=== PATIENT | female | born 1935 | race African-American/Black ===

== ENCOUNTER 2022-02-23 13:40 | Inpatient (IN) | payer MEDICARE, BC ==
[~2022-02-23] VITALS: Ht 167.6 cm; Wt 53.8 kg
[2022-02-23 16:31] LABS: BASOPHILS % 0.7 % (0.0-2.0); EOSINOPHILS % 0.2 % (0.0-5.0); HEMATOCRIT. 41.2 % (36.0-48.0); HEMOGLOBIN. 13.7 g/dL (12.0-16.0); LYMPHOCYTES % 10.2 % (20.0-50.0); MEAN CORPUSCULAR HEMOGLOBIN 28.9 pg (28.0-32.0); MEAN CORPUSCULAR VOLUME 86.7 fL (81.0-99.0); MEAN PLATELET VOLUME 9.9 fl (7.4-10.4); MONOCYTES % 7.8 % (2.0-8.0); NEUTROPHILS % 81.1 % (40.0-76.0); PLATELET 195 x1000/uL (130-400); RED BLOOD CELL COUNT 4.75 mill/uL (4.2-5.4); RED CELL DISTRIBUTION WIDTH 14.3 % (11.6-14.6)
[2022-02-23 16:36] LABS: CHLORIDE 107 mEq/L (98-107)
[2022-02-23] MEDS ORDERED: ONDANSETRON HCL 4MG/2ML INJ IV STA (16:41)
[2022-02-23] MEDS ORDERED: MORPHINE SULFATE 4 MG/ML CPJ (NOT FOR IM USE) IV STA (16:41)
[2022-02-23] MEDS ORDERED: CEFTRIAXONE 1 G PREMIX 50 ML IV ONE (16:45)
[2022-02-23 18:25] LABS: CLARITY URINE CLOUDY (CLEAR); COLOR URINE YELLOW (YELLOW); KETONES URINE TRACE (NEGATIVE); LEUKOCYTE ESTERASE URINE 2+ (NEGATIVE); NITRITE URINE NEGATIVE (NEGATIVE); OCCULT BLOOD URINE NEGATIVE (NEGATIVE); PH URINE 6.5 (4.5-8.0); PROTEIN URINE 1+ (NEGATIVE); SPECIFIC GRAVITY URINE 1.019 (1.005-1.030)
[2022-02-23] MEDS ORDERED: LACTULOSE 20G/30ML UDC PO NR (23:15)
[2022-02-23] MEDS ORDERED: DOCUSATE SODIUM 100MG CAPSULE PO PRN (23:15)
[2022-02-23] MEDS ORDERED: ONDANSETRON HCL 4MG/2ML INJ IV PRN (23:15)
[2022-02-23] MEDS ORDERED: ACETAMINOPHEN 325MG TABLET PO PRN (23:15)
[2022-02-23] MEDS ORDERED: MAGNESIUM/ALUMINUM HYDROXIDE/SIMETHICONE 30ML UDC PO PRN (23:15)
[2022-02-23] MEDS ORDERED: DIPHENHYDRAMINE 50MG/ML VIAL IV PRN (23:15)
[2022-02-23] MEDS ORDERED: MORPHINE SULFATE 2 MG/ML CPJ (NOT FOR IM USE) IV PRN (23:15)
[2022-02-23] MEDS ORDERED: HYDRALAZINE 20MG/ML VIAL IV PRN (23:15)
[2022-02-23] MEDS ORDERED: CLONIDINE 0.1MG TABLET PO PRN (23:15)
[2022-02-23] MEDS ORDERED: GUAIFENESIN 200MG/10ML SUGAR FREE UDC PO PRN (23:15)
[2022-02-23] MEDS ORDERED: HYDROCODONE/ACETAMINOPHEN 5/325MG TABLET PO PRN (23:15)
[2022-02-23] MEDS ORDERED: IPRATROPIUM/ALBUTEROL 0.5-3(2.5)MG/3ML NEB HHN PRN (23:15)
[2022-02-23] MEDS ORDERED: LORAZEPAM 2MG/ML CPJ IV PRN (23:15)
[2022-02-23] MEDS: SODIUM CHLORIDE 0.45% 1,000 ML IV SCH (23:41)
[2022-02-24] MEDS: SODIUM CHLORIDE 0.9% INJ 3ML FLUSH IVF SCH ×2 (06:04→14:00)
[2022-02-24 09:30] VITALS: BP 158/62
[2022-02-24] MEDS: ENOXAPARIN 30MG/0.3ML SYR SUBCUT SCH (09:55)
[2022-02-24 11:32] VITALS: BP 158/62
[2022-02-24 12:00] VITALS: BP 140/60
[2022-02-24] MEDS ORDERED: BISACODYL 10MG SUPP PR PRN (12:30)
[2022-02-24 13:22] LABS: BASOPHILS % 1.1 % (0.0-2.0); EOSINOPHILS % 1.2 % (0.0-5.0); HEMATOCRIT. 38.1 % (36.0-48.0); HEMOGLOBIN. 12.5 g/dL (12.0-16.0); LYMPHOCYTES % 17.8 % (20.0-50.0); MEAN CORPUSCULAR HEMOGLOBIN 28.2 pg (28.0-32.0); MEAN PLATELET VOLUME 9.9 fl (7.4-10.4); MONOCYTES % 9.2 % (2.0-8.0); NEUTROPHILS % 70.7 % (40.0-76.0); PLATELET 189 x1000/uL (130-400); RED BLOOD CELL COUNT 4.43 mill/uL (4.2-5.4); RED CELL DISTRIBUTION WIDTH 14.4 % (11.6-14.6)
[2022-02-24 13:31] LABS: CHLORIDE 108 mEq/L (98-107)
[2022-02-24 16:00] VITALS: BP 130/68
[2022-02-24] MEDS: SODIUM CHLORIDE 0.45% 1,000 ML IV SCH (17:22)
[2022-02-24 20:00] VITALS: BP 160/58
[2022-02-25] VITALS: BP 155/62
[2022-02-25 04:00] VITALS: BP 154/82
[2022-02-25 08:00] VITALS: BP 152/56
[2022-02-25] MEDS: SODIUM CHLORIDE 0.45% 1,000 ML IV SCH (09:08)
[2022-02-25] MEDS: ENOXAPARIN 30MG/0.3ML SYR SUBCUT SCH (09:08)
[2022-02-25 12:00] VITALS: BP 153/64
[2022-02-25] MEDS ORDERED: NALOXONE HCL 0.4MG/ML VIAL IV PRN (14:45)
[2022-02-25 16:00] VITALS: BP 164/70
[2022-02-25 17:28] VITALS: BP 152/56
== END 2022-02-25 18:11 | disposition home or self-care (01) | DRG 392 ==
LOC: ER 13:40 → MICUSO 17:56 → 6EST 02-24 09:01
PROVIDERS: ADMIT Internal Medicine; ATTEND Internal Medicine
DX: K52.9 Noninfective gastroenteritis and colitis, unspecified (principal); K56.41 Fecal impaction; K57.90 Diverticulosis of intestine, part unspecified, without perforation or abscess without bleeding; K20.90 Esophagitis, unspecified without bleeding; E78.00 Pure hypercholesterolemia, unspecified; J44.9 Chronic obstructive pulmonary disease, unspecified; K44.9 Diaphragmatic hernia without obstruction or gangrene; E78.5 Hyperlipidemia, unspecified; I10 Essential (primary) hypertension; K80.20 Calculus of gallbladder without cholecystitis without obstruction; N20.0 Calculus of kidney; N28.1 Cyst of kidney, acquired; Z85.3 Personal history of malignant neoplasm of breast; Z90.10 Acquired absence of unspecified breast and nipple; Z91.041 Radiographic dye allergy status
CPT/HCPCS: 36415; 71045; 74176; 80053; 81003; 82962; 85025; 93005; 99285; J0696; J1650; J2270; J2405

== ENCOUNTER 2022-08-08 07:12 | Inpatient (IN) | payer MEDICARE, BC ==
[~2022-08-08] VITALS: Ht 162.6 cm; Wt 52.2 kg
[2022-08-08 08:09] LABS: BASOPHILS % 1.3 % (0.0-2.0); EOSINOPHILS % 2.4 % (0.0-5.0); HEMOGLOBIN. 12.2 g/dL (12.0-16.0); LYMPHOCYTES % 14.2 % (20.0-50.0); MEAN CORPUSCULAR HEMOGLOBIN 28.2 pg (28.0-32.0); MEAN CORPUSCULAR VOLUME 85.2 fL (81.0-99.0); MEAN PLATELET VOLUME 9.3 fl (7.4-10.4); MONOCYTES % 8.4 % (2.0-8.0); NEUTROPHILS % 73.7 % (40.0-76.0); PLATELET 238 x1000/uL (130-400); RED BLOOD CELL COUNT 4.34 mill/uL (4.2-5.4); RED CELL DISTRIBUTION WIDTH 14.5 % (11.6-14.6)
[2022-08-08 08:16] LABS: CHLORIDE 104 mEq/L (98-107)
[2022-08-08 08:19] LABS: PROTHROMBIN TIME 10.9 sec (9.6-11.0)
[2022-08-08 09:41] LABS: CLARITY URINE CLEAR (CLEAR); COLOR URINE YELLOW (YELLOW); KETONES URINE NEGATIVE (NEGATIVE); LEUKOCYTE ESTERASE URINE NEGATIVE (NEGATIVE); NITRITE URINE NEGATIVE (NEGATIVE); OCCULT BLOOD URINE NEGATIVE (NEGATIVE); PROTEIN URINE TRACE (NEGATIVE); SPECIFIC GRAVITY URINE 1.009 (1.005-1.030); UROBILINOGEN URINE 0.2 E.U./dL (0.2-1.0)
[2022-08-08] MEDS ORDERED: HYDRALAZINE 20MG/ML VIAL IV ONE (09:45)
[2022-08-08 12:00] VITALS: BP 159/75
[2022-08-08 12:15] VITALS: BP 159/75
[2022-08-08] MEDS ORDERED: ONDANSETRON HCL 4MG/2ML INJ IV PRN (12:30)
[2022-08-08] MEDS ORDERED: ACETAMINOPHEN 325MG TABLET PO PRN (12:30)
[2022-08-08] MEDS ORDERED: IPRATROPIUM/ALBUTEROL 0.5-3(2.5)MG/3ML NEB HHN PRN (12:30)
[2022-08-08] MEDS ORDERED: LORAZEPAM 0.5MG TABLET PO PRN (12:30)
[2022-08-08 16:00] VITALS: BP 180/82
[2022-08-08] MEDS: CLONIDINE 0.1MG TABLET PO PRN (16:37)
[2022-08-08] MEDS: ACETAMINOPHEN 325MG TABLET PO PRN (16:38)
[2022-08-08 18:55] VITALS: BP 155/75
[2022-08-08 20:00] VITALS: BP 143/65
[2022-08-08] MEDS ORDERED: NALOXONE HCL 0.4MG/ML VIAL IV PRN (22:30)
[2022-08-09] VITALS: BP 150/69
[2022-08-09 05:10] VITALS: BP 174/74
[2022-08-09] MEDS: CLONIDINE 0.1MG TABLET PO PRN (05:22)
[2022-08-09] MEDS: ACETAMINOPHEN 325MG TABLET PO PRN (05:22)
[2022-08-09 07:18] LABS: BASOPHILS % 1.1 % (0.0-2.0); EOSINOPHILS % 3.5 % (0.0-5.0); HEMATOCRIT. 38.8 % (36.0-48.0); HEMOGLOBIN. 12.4 g/dL (12.0-16.0); LYMPHOCYTES % 15.2 % (20.0-50.0); MEAN CORPUSCULAR HEMOGLOBIN 27.9 pg (28.0-32.0); MEAN CORPUSCULAR VOLUME 87.1 fL (81.0-99.0); MEAN PLATELET VOLUME 9.9 fl (7.4-10.4); MONOCYTES % 10.1 % (2.0-8.0); NEUTROPHILS % 70.1 % (40.0-76.0); PLATELET 240 x1000/uL (130-400); RED BLOOD CELL COUNT 4.46 mill/uL (4.2-5.4); RED CELL DISTRIBUTION WIDTH 14.7 % (11.6-14.6)
[2022-08-09 08:00] VITALS: BP 150/64
[2022-08-09 12:00] VITALS: BP 147/60
[2022-08-09] MEDS: AMLODIPINE 5MG TABLET PO SCH (15:15)
[2022-08-09 16:00] VITALS: BP 105/69
[2022-08-09] MEDS: ENOXAPARIN 30MG/0.3ML SYR SUBCUT SCH (16:12)
[2022-08-09 20:00] VITALS: BP 164/70
[2022-08-10] VITALS (7 sets, daily range): BP systolic 122–191; BP diastolic 58–82
[2022-08-10] MEDS: ACETAMINOPHEN 325MG TABLET PO PRN ×2 (00:31→16:02)
[2022-08-10] MEDS: CLONIDINE 0.1MG TABLET PO PRN (00:39)
[2022-08-10] MEDS: AMLODIPINE 5MG TABLET PO SCH (09:15)
[2022-08-10] MEDS: ENOXAPARIN 30MG/0.3ML SYR SUBCUT SCH (15:28)
[2022-08-11] VITALS: BP 161/70
[2022-08-11] MEDS: HYDROCODONE/ACETAMINOPHEN 5/325MG TABLET PO PRN ×2 (00:35→23:59)
[2022-08-11 04:00] VITALS: BP 109/68
[2022-08-11 07:42] LABS: BASOPHILS % 1.1 % (0.0-2.0); HEMATOCRIT. 36.9 % (36.0-48.0); LYMPHOCYTES % 26.7 % (20.0-50.0); MEAN CORPUSCULAR HEMOGLOBIN 28.2 pg (28.0-32.0); MEAN CORPUSCULAR VOLUME 86.8 fL (81.0-99.0); MEAN PLATELET VOLUME 9.8 fl (7.4-10.4); MONOCYTES % 14.5 % (2.0-8.0); NEUTROPHILS % 52.7 % (40.0-76.0); PLATELET 239 x1000/uL (130-400); RED BLOOD CELL COUNT 4.25 mill/uL (4.2-5.4); RED CELL DISTRIBUTION WIDTH 14.7 % (11.6-14.6)
[2022-08-11 07:54] VITALS: BP 134/72
[2022-08-11] MEDS: AMLODIPINE 5MG TABLET PO SCH (08:13)
[2022-08-11 12:00] VITALS: BP 155/64
[2022-08-11 13:10] LABS: CA 27.29 35.2 U/mL (0.0-38.6)
[2022-08-11] MEDS: ENOXAPARIN 30MG/0.3ML SYR SUBCUT SCH (14:05)
[2022-08-11 16:04] VITALS: BP 145/67
[2022-08-11] MEDS ORDERED: LACTULOSE 20G/30ML UDC PO PRN (17:00)
[2022-08-11] MEDS: POLYETHYLENE GLYCOL 3350 (17GM) 1 DOSE PACK PO SCH (17:23)
[2022-08-11 20:00] VITALS: BP 145/72
[2022-08-12] VITALS: BP 158/67
[2022-08-12 04:00] VITALS: BP 126/53
[2022-08-12 08:00] VITALS: BP 141/57
[2022-08-12] MEDS: AMLODIPINE 5MG TABLET PO SCH (08:08)
[2022-08-12] MEDS: POLYETHYLENE GLYCOL 3350 (17GM) 1 DOSE PACK PO SCH (08:08)
[2022-08-12 12:00] VITALS: BP 155/58
[2022-08-12] MEDS ORDERED: LACTULOSE 20G/30ML UDC PO PRN (12:45)
[2022-08-12] MEDS: ENOXAPARIN 30MG/0.3ML SYR SUBCUT SCH (15:28)
[2022-08-12 16:00] VITALS: BP 135/52
[2022-08-12 20:00] VITALS: BP 140/59
[2022-08-12] MEDS: VALACYCLOVIR HCL 500MG TABLET PO SCH (21:48)
[2022-08-13] VITALS: BP 97/35
[2022-08-13] MEDS: HYDROCODONE/ACETAMINOPHEN 5/325MG TABLET PO PRN (01:00)
[2022-08-13 04:00] VITALS: BP 100/59
[2022-08-13 08:00] VITALS: BP 139/64
[2022-08-13] MEDS: AMLODIPINE 5MG TABLET PO SCH (08:51)
[2022-08-13] MEDS: POLYETHYLENE GLYCOL 3350 (17GM) 1 DOSE PACK PO SCH (08:51)
[2022-08-13] MEDS: VALACYCLOVIR HCL 500MG TABLET PO SCH ×2 (08:51→22:10)
[2022-08-13 12:00] VITALS: BP 142/72
[2022-08-13] MEDS: DOCUSATE SODIUM 100MG CAPSULE PO PRN (14:04)
[2022-08-13 16:00] VITALS: BP 125/62
[2022-08-13] MEDS: ENOXAPARIN 30MG/0.3ML SYR SUBCUT SCH (16:18)
[2022-08-13 20:00] VITALS: BP 167/83
[2022-08-13] MEDS: CLONIDINE 0.1MG TABLET PO PRN (20:35)
[2022-08-13] MEDS: ACETAMINOPHEN 325MG TABLET PO PRN (22:15)
[2022-08-14] VITALS: BP 134/51
[2022-08-14 04:00] VITALS: BP 142/55
[2022-08-14 06:59] LABS: BASOPHILS % 1.4 % (0.0-2.0); EOSINOPHILS % 4.8 % (0.0-5.0); HEMOGLOBIN. 12.2 g/dL (12.0-16.0); LYMPHOCYTES % 25.8 % (20.0-50.0); MEAN CORPUSCULAR HEMOGLOBIN 28.1 pg (28.0-32.0); MEAN CORPUSCULAR VOLUME 85.5 fL (81.0-99.0); MEAN PLATELET VOLUME 9.5 fl (7.4-10.4); MONOCYTES % 13.4 % (2.0-8.0); NEUTROPHILS % 54.6 % (40.0-76.0); PLATELET 253 x1000/uL (130-400); RED BLOOD CELL COUNT 4.32 mill/uL (4.2-5.4); RED CELL DISTRIBUTION WIDTH 14.4 % (11.6-14.6)
[2022-08-14 08:21] VITALS: BP 170/73
[2022-08-14] MEDS ORDERED: MORPHINE SULFATE 2 MG/ML CPJ (NOT FOR IM USE) IV NR (08:45)
[2022-08-14] MEDS: AMLODIPINE 5MG TABLET PO SCH (08:50)
[2022-08-14] MEDS: POLYETHYLENE GLYCOL 3350 (17GM) 1 DOSE PACK PO SCH (08:50)
[2022-08-14] MEDS: DOCUSATE SODIUM 100MG CAPSULE PO PRN ×2 (08:50→21:43)
[2022-08-14] MEDS: CLONIDINE 0.1MG TABLET PO PRN (08:58)
[2022-08-14 12:54] VITALS: BP 123/61
[2022-08-14] MEDS: VALACYCLOVIR HCL 500MG TABLET PO SCH ×2 (14:13→21:43)
[2022-08-14] MEDS: METOPROLOL TARTRATE 25MG TABLET PO SCH ×2 (14:14→21:00)
[2022-08-14 16:00] VITALS: BP 131/58
[2022-08-14] MEDS ORDERED: FUROSEMIDE 40MG TABLET PO SCH (17:30)
[2022-08-14] MEDS: ENOXAPARIN 30MG/0.3ML SYR SUBCUT SCH (18:27)
[2022-08-14 20:00] VITALS: BP 128/56
[2022-08-15] VITALS: BP 126/59
[2022-08-15 04:00] VITALS: BP 124/58
[2022-08-15 06:55] LABS: BASOPHILS % 1.7 % (0.0-2.0); EOSINOPHILS % 6.3 % (0.0-5.0); LYMPHOCYTES % 26.6 % (20.0-50.0); MEAN CORPUSCULAR HEMOGLOBIN 28.4 pg (28.0-32.0); MEAN CORPUSCULAR VOLUME 85.3 fL (81.0-99.0); MEAN PLATELET VOLUME 9.3 fl (7.4-10.4); MONOCYTES % 11.1 % (2.0-8.0); NEUTROPHILS % 54.3 % (40.0-76.0); PLATELET 271 x1000/uL (130-400); RED BLOOD CELL COUNT 4.22 mill/uL (4.2-5.4); RED CELL DISTRIBUTION WIDTH 14.2 % (11.6-14.6)
[2022-08-15 08:00] VITALS: BP 98/45
[2022-08-15] MEDS: POLYETHYLENE GLYCOL 3350 (17GM) 1 DOSE PACK PO SCH (08:27)
[2022-08-15] MEDS: VALACYCLOVIR HCL 500MG TABLET PO SCH ×2 (08:27→21:24)
[2022-08-15] MEDS: METOPROLOL TARTRATE 25MG TABLET PO SCH ×2 (08:27→21:23)
[2022-08-15] MEDS: FUROSEMIDE 40MG/4ML VIAL IVP SCH (08:28)
[2022-08-15] MEDS: AMLODIPINE 10MG TABLET PO SCH (08:28)
[2022-08-15 12:00] VITALS: BP 104/48
[2022-08-15] MEDS: ENOXAPARIN 30MG/0.3ML SYR SUBCUT SCH (13:10)
[2022-08-15 15:42] VITALS: BP 141/60
[2022-08-15] MEDS ORDERED: BISACODYL 10MG SUPP PR PRN (18:15)
[2022-08-15] MEDS ORDERED: BISACODYL 10MG SUPP PR NR (18:15)
[2022-08-15 20:00] VITALS: BP 150/70
[2022-08-15] MEDS: ACETAMINOPHEN 325MG TABLET PO PRN (21:23)
[2022-08-16] VITALS: BP 140/70
[2022-08-16] MEDS: ACETAMINOPHEN 325MG TABLET PO PRN ×2 (03:54→08:14)
[2022-08-16 04:00] VITALS: BP 135/60
[2022-08-16 08:01] VITALS: BP 133/54
[2022-08-16] MEDS: FUROSEMIDE 40MG/4ML VIAL IVP SCH (08:09)
[2022-08-16] MEDS: AMLODIPINE 10MG TABLET PO SCH (08:10)
[2022-08-16] MEDS: POLYETHYLENE GLYCOL 3350 (17GM) 1 DOSE PACK PO SCH (08:10)
[2022-08-16] MEDS: VALACYCLOVIR HCL 500MG TABLET PO SCH (08:10)
[2022-08-16] MEDS: METOPROLOL TARTRATE 25MG TABLET PO SCH (08:10)
[2022-08-16 12:00] VITALS: BP 145/69
[2022-08-16] MEDS ORDERED: METO25TA6 PO (12:48)
[2022-08-16] MEDS ORDERED: AMLO10TA80 PO (12:48)
[2022-08-16] MEDS ORDERED: ONDA4TAB50 MT (12:48)
[2022-08-16] MEDS ORDERED: POLY17PO3 PO (12:48)
[2022-08-16] MEDS ORDERED: HYDR-4001 MT (12:48)
[2022-08-16 14:04] VITALS: BP 145/89
[2022-08-16] MEDS: ENOXAPARIN 30MG/0.3ML SYR SUBCUT SCH (14:32)
[2022-08-16 16:00] VITALS: BP 120/49
[2022-08-17] MEDS ORDERED: FUROSEMIDE 20MG TABLET PO SCH (09:00)
== END 2022-08-16 17:10 | disposition home health service (06) | DRG 542 ==
LOC: ER 07:12 → 8WST 09:00 → EDBEDREQ 09:03 → EDBEDREQSVC 09:03 → EDBEDREQTM 09:03
PROVIDERS: ADMIT Internal Medicine; ATTEND Internal Medicine
DX: C79.51 Secondary malignant neoplasm of bone (principal); I21.4 Non-ST elevation (NSTEMI) myocardial infarction; M84.48XA Pathological fracture, other site, initial encounter for fracture; N13.30 Unspecified hydronephrosis; R64 Cachexia; I50.30 Unspecified diastolic (congestive) heart failure; Z68.1 Body mass index [BMI] 19.9 or less, adult; I13.0 Hypertensive heart and chronic kidney disease with heart failure and stage 1 through stage 4 chronic kidney disease, or unspecified chronic kidney disease; C78.00 Secondary malignant neoplasm of unspecified lung; K56.41 Fecal impaction; Z20.822 Contact with and (suspected) exposure to COVID-19; K80.20 Calculus of gallbladder without cholecystitis without obstruction; B02.9 Zoster without complications; J44.9 Chronic obstructive pulmonary disease, unspecified; E78.5 Hyperlipidemia, unspecified; K44.9 Diaphragmatic hernia without obstruction or gangrene; K57.90 Diverticulosis of intestine, part unspecified, without perforation or abscess without bleeding; N18.9 Chronic kidney disease, unspecified; M40.204 Unspecified kyphosis, thoracic region; E78.00 Pure hypercholesterolemia, unspecified; I49.3 Ventricular premature depolarization; N28.1 Cyst of kidney, acquired; Z87.891 Personal history of nicotine dependence; Z90.10 Acquired absence of unspecified breast and nipple; Z85.3 Personal history of malignant neoplasm of breast; Z85.118 Personal history of other malignant neoplasm of bronchus and lung
CPT/HCPCS: 36415; 70551; 71045; 71250; 72141; 72146; 72148; 74176; 76830; 76856; 80048; 80053; 80061; 81003; 82378; 82784; 83036; 83605; 83880; 84145; 84443; 84484; 85025; 86300; 86304; 86334; 93005; 93306; 93970; 97116; 97162; 97166; 97530; 97535; 99285; A6261; J0360; J1650; J1940